=== PATIENT | female | born 1945 | race Caucasian/White ===

== ENCOUNTER → 2019-01-04 11:56 | Outpatient (CLI) | payer OTHER, SELFPAY ==
--- NOTE | 2019-01-04 | DI.RAD.S_ITS ---
PROCEDURE: XR FOOT LT 2V INDICATIONS: PAIN IN BOTH TECHNIQUE: 2 views of the foot were acquired. COMPARISON: None. FINDINGS: Bones: No fractures or dislocations. Degenerative changes of the left first metatarsophalangeal joint. Tiny plantar calcaneal spur. No suspicious bony lesions. Soft tissues: No tibiotalar joint effusion. Achilles tendon appears normal. IMPRESSION: Left foot without acute osseous abnormality. Mild left first metatarsophalangeal joint degenerative change. Tiny plantar calcaneal spurring. Dictated by: Juan C Frankel M.D. on 01/04/2019 at 12:08 Approved by: Juan C Frankel M.D. on 01/04/2019 at 12:10
--- NOTE | 2019-01-04 | DI.RAD.S_ITS ---
PROCEDURE: XR FOOT RT 2V INDICATIONS: PAIN IN BOTH TECHNIQUE: 2 views of the foot were acquired. COMPARISON: [facility], CR, XR FOOT LT 2V, 01/04/2019, 12:04. FINDINGS: Bones: No acute fractures or dislocations. Mild degenerative changes of the right first metatarsophalangeal joint. Prominent retrocalcaneal spurring. No suspicious bony lesions. Soft tissues: No tibiotalar joint effusion. Achilles tendon appears normal. IMPRESSION: Right foot without acute osseous abnormalities. Prominent retrocalcaneal spurring. Mild right first metatarsophalangeal joint osteoarthrosis. If there are persistent symptoms or clinical suspicion for pathology, then repeat radiographs or advanced imaging (CT, MRI or bone scan) should be considered for further evaluation. Dictated by: Juan C Frankel M.D. on 01/04/2019 at 12:11 Approved by: Juan C Frankel M.D. on 01/04/2019 at 12:13
== END ==
PROVIDERS: Family Provider Physician Assistant; PCP Physician Assistant; Visit Provider Student in an Organized Health Care Education/Training Program
DX: M79.672 Pain in left foot (principal); M79.671 Pain in right foot
CPT/HCPCS: 73620

== ENCOUNTER → 2021-09-15 11:47 | Outpatient (CLI) | payer MEDICARE, SELFPAY ==
--- NOTE | 2021-09-15 11:51 | DI.RAD.S_ITS ---
PROCEDURE: XR KNEE RT 3V INDICATIONS: right knee pain TECHNIQUE: 3 views of the knee were acquired. COMPARISON: [facility], , KNEE 3V LEFT, 12/02/2012, 14:17. FINDINGS: Bones: No fractures or dislocations. No suspicious bony lesions. Mild narrowing of the medial femorotibial joint and tricompartmental periarticular osteophyte formation. Soft tissues: Small joint effusion. No suspicious soft tissue calcifications. IMPRESSION: 1. Tricompartmental knee joint degeneration, most notably involving the medial femorotibial joint. 2. Small knee joint effusion. Dictated by: Pasquale Montero [facility] Interpreted: Claus Valverde MD on 09/15/2021 at 12:21 Transcribed by: DOM on 09/15/2021 at 12:22 Approved by: Claus Valverde M.D. on 09/15/2021 at 16:48
== END ==
PROVIDERS: Family Provider Physician Assistant; PCP Internal Medicine; Referring Provider Nurse Practitioner Family; Visit Provider Nurse Practitioner Family
DX: M25.561 Pain in right knee (principal); M25.461 Effusion, right knee; M17.11 Unilateral primary osteoarthritis, right knee
CPT/HCPCS: 73562

== ENCOUNTER → 2021-09-27 11:14 | Outpatient (CLI) | payer MEDICARE, SELFPAY ==
--- NOTE | 2021-09-27 11:17 | DI.MRI.S_ITS ---
PROCEDURE: MR KNEE RT WO CON INDICATIONS: Pain in right knee TECHNIQUE: Noncontrast sagittal PD fast spin echo and T2 fast spin echo with fat saturation, sagittal 3-D FLASH with fat saturation; coronal T1 spin echo and PD fast spin echo with fat saturation, and axial PD fast spin echo with fat saturation through the knee. COMPARISON: None. FINDINGS: Image quality: Excellent. Menisci: Peripheral displacement of medial meniscus is seen bowing medial collateral ligament. There is complex tear involving body of medial meniscus extending to both superior and inferior articulating surfaces. Lateral meniscus is intact. The meniscal root ligaments appear intact. Cruciate ligaments: The anterior and posterior cruciate ligaments appear intact. Medial structures: There is low-grade medial collateral ligament sprain. The posterior oblique ligament, semimembranosus tendon insertions, oblique popliteal ligament, and meniscocapsular junction appear intact. Visualized portions of the pes anserinus tendons appear normal. No abnormal bursal fluid. Lateral structures: The lateral collateral ligament, long and short heads of the biceps femoris tendon appear intact. The popliteus tendon appears normal; the popliteofibular ligament appears intact. The posterosuperior and anteroinferior popliteomeniscal fascicles appear intact. The arcuate and fabellofibular ligaments appear intact, on either side of the lateral inferior geniculate artery. Iliotibial band appears normal. Anterior structures: The quadriceps and patellar tendons appear intact. Patellar alignment is normal. No femoral trochlear dysplasia or ventral trochlear prominence. No edema in the infrapatellar fat pad. Bones and cartilage: No bone marrow contusions or fractures. Ujtx-vc-[id number] tricompartmental osteoarthritis and chondromalacia is seen more prominent in medial femoral tibial compartment and apex of patella cartilage. Joint space: There is small to moderate joint fluid. No Oropeza's cyst. Normal appearing synovial plicae are incidentally noted. IMPRESSION: 1. Complex tear involving body of medial meniscus extending to both superior and inferior articulating surfaces. No focal lateral meniscal tear. 2. Cruciate ligaments are intact. Low-grade MCL sprain. 3. Bsiu-bs-llijsgrj tricompartmental osteoarthritis and chondromalacia more prominent in medial femoral tibial compartment and apex of patella cartilage. Small to moderate joint effusion. Dictated by: Claus Valverde M.D. on 09/27/2021 at 16:44 Approved by: Claus Valverde M.D. on 09/27/2021 at 16:46
== END ==
PROVIDERS: Family Provider Physician Assistant; PCP Internal Medicine; Referring Provider Internal Medicine; Visit Provider Internal Medicine
DX: S83.231A Complex tear of medial meniscus, current injury, right knee, initial encounter (principal); S83.411A Sprain of medial collateral ligament of right knee, initial encounter; M17.11 Unilateral primary osteoarthritis, right knee; M94.261 Chondromalacia, right knee; M25.461 Effusion, right knee; M25.561 Pain in right knee
CPT/HCPCS: 73721

== ENCOUNTER → 2021-11-03 18:53 | Outpatient (CLI) | payer MEDICARE, SELFPAY ==
--- NOTE | 2021-11-03 | DI.MRI.S_ITS ---
PROCEDURE: MR LUMBAR SPINE WO CON INDICATIONS: RADICULOPATHY, LUMBAR REGION TECHNIQUE: Noncontrast sagittal T1 spin echo and T2 fast echo, sagittal STIR, and T2 fast spin echo through the lumbar spine. In cases with scoliosis, additional coronal T2 fast spin echo may be performed. COMPARISON: [facility], MR, MR LUMBAR SPINE WITH/WITHOUT CONTRAST, 03/14/2020, 10:34. [facility], CT, CT ABDOMEN PELVIS WITH CONTRAST, 03/05/2020, 11:14. FINDINGS: Image quality: Excellent. Alignment and Curvature: 5 lumbar type vertebral bodies are present by plain film. 2 mm of anterolisthesis of L4 on L5. 2 mm of anterolisthesis of L3 on L4. Bone Marrow: Marrow is of normal overall signal. No acute vertebral body compression fractures. Mild reactive signal throughout the endplates of the lumbar spine. Spinal Cord: Conus medullaris terminates at the L1-L2 disc space level. Visualized cord demonstrates normal signal and size. Paraspinous Soft Tissues: No paravertebral masses. T12-L1: Mild disc height loss and desiccation. Mild diffuse disc bulge. Mild facet and ligamentum flavum hypertrophy. Mild epidural lipomatosis. Mild canal stenosis. No foraminal stenosis. No significant change. L1-L2: Mild disc height loss and desiccation. Mild diffuse disc bulge. Mild facet and ligamentum flavum hypertrophy. Mild epidural lipomatosis. Mild canal stenosis. Mild bilateral foraminal stenosis. No significant change. L2-L3: Mild disc height loss and desiccation. Mild diffuse disc bulge. Mild facet and ligamentum flavum hypertrophy. Mild epidural lipomatosis. Mild canal stenosis. Mild bilateral foraminal stenosis. L3-L4: Moderate disc height loss and desiccation. Mild diffuse disc bulge. Mild facet and ligamentum flavum hypertrophy. Mild epidural lipomatosis. Mild canal stenosis. Mild bilateral foraminal stenosis. No significant change. L4-L5: Moderate disc height loss and desiccation. Mild diffuse disc bulge with superimposed left paracentral disc extrusion which extends superiorly within the left anterior epidural space, new since the prior examination. Mild facet and ligamentum flavum hypertrophy. Mild epidural lipomatosis. Increased, mild canal stenosis. No change in moderate right greater than left subarticular foraminal stenosis. L5-S1: Mild disc height loss and desiccation. Mild diffuse disc bulge. Mild bilateral facet hypertrophy. Right-sided perineural cyst. Mild canal stenosis. Mild bilateral foraminal stenosis. Tarlov cysts within the sacral canal, as before. IMPRESSION: 1. Multilevel degenerative disc and facet disease, as well as ligamentum flavum hypertrophy and epidural lipomatosis. 2. Mild multilevel canal stenoses. 3. Multilevel foraminal stenoses, worst at L4-L5 where there are moderate foraminal stenoses. Dictated by: Angella Bang M.D. on 11/04/2021 at 8:55 Approved by: Angella Bang M.D. on 11/04/2021 at 8:59
== END ==
PROVIDERS: Family Provider Physician Assistant; PCP Internal Medicine; Referring Provider Orthopaedic Surgery Foot and Ankle Surgery; Visit Provider Orthopaedic Surgery Foot and Ankle Surgery
DX: M51.16 Intervertebral disc disorders with radiculopathy, lumbar region (principal); M51.17 Intervertebral disc disorders with radiculopathy, lumbosacral region; M48.061 Spinal stenosis, lumbar region without neurogenic claudication; M48.07 Spinal stenosis, lumbosacral region
CPT/HCPCS: 72148

== ENCOUNTER → 2022-03-03 13:42 | Outpatient (CLI) | payer OTHER, SELFPAY | PROVIDERS: Family Provider Physician Assistant; PCP Internal Medicine; Referring Provider Orthopaedic Surgery Foot and Ankle Surgery; Visit Provider Orthopaedic Surgery Foot and Ankle Surgery | DX: Z01.818 Encounter for other preprocedural examination (principal) | CPT/HCPCS: 93005; 93010 ==

== ENCOUNTER → 2022-11-28 11:00 | Outpatient (CLI) | payer MEDICARE, SELFPAY ==
[2022-11-28 12:55] LABS: Hematocrit 39.6 % (36-46); Hemoglobin 13.5 g/dL (12.0-16.0); Mean Corpuscular Hemoglobin 31.3 PG (26-34); Mean Corpuscular Volume 92.1 fL (80-100); Platelet Count 236 X10^3/uL (150-400); Red Blood Cell Count 4.31 X10^6/uL (4.0-5.2); Red Cell Distribution Width 13.2 % (11.6-14.8); White Blood Cell Count 7.7 X10^3/uL (4.5-11.0)
[2022-11-28 13:33] LABS: Alanine Aminotransferase 24 IU/L (<35); Albumin 4.3 g/dL (3.5-5.0); Albumin Globulin Ratio 1.5 (1.0-2.8); Alkaline Phosphatase 46 U/L (38-126); Aspartate Aminotransferase 33 IU/L (14-36); BUN Creatinine Ratio 27.7 (6-22); Bilirubin Total 0.6 mg/dL (0.2-1.3); Blood Urea Nitrogen 18 mg/dL (7-17); Calcium 9.8 mg/dL (8.4-10.2); Carbon Dioxide 28 mmol/L (22-32); Chloride 103 mmol/L (98-107); Estimated Glomerular Filt Rate > 60 mL/min (>60); Globulin 2.9 g/dL (1.7-4.1); Glucose 95 mg/dL (80-110); HEMOLYSIS 15 (0-50); Magnesium 2.1 mg/dL (1.6-2.3); Potassium 4.2 mmol/L (3.4-5.1); Sodium 137 mmol/L (137-145); Total Protein 7.2 g/dL (6.3-8.2)
[2022-11-28 14:08] LABS: Free T3, Triiodothyronine Free 4.84 pg/mL (2.77-5.27); Free T4, Direct Thyroxine 1.44 ng/dL (0.78-2.19)
== END ==
PROVIDERS: Family Provider Physician Assistant; PCP Nurse Practitioner; Referring Provider Nurse Practitioner; Visit Provider Nurse Practitioner
DX: R41.9 Unspecified symptoms and signs involving cognitive functions and awareness (principal); T50.905A Adverse effect of unspecified drugs, medicaments and biological substances, initial encounter; F41.9 Anxiety disorder, unspecified; R42 Dizziness and giddiness
CPT/HCPCS: 36415; 80053; 83735; 84439; 84443; 84481; 85027

== ENCOUNTER → 2022-12-08 11:08 | Outpatient (CLI) | payer MEDICARE, SELFPAY ==
--- NOTE | 2022-12-08 11:10 | DI.US.S_ITS ---
PROCEDURE: US CAROTID DOPPLER BI INDICATIONS: dizziness TECHNIQUE: Color and pulse Doppler interrogation was performed of both carotid systems, with image documentation and velocity measurements. COMPARISON: None. FINDINGS: Stenosis calculations are based on SRU (Society of Radiologists in Ultrasound) criteria. The flow velocities and the arterial waveforms are normal within both carotid arterial systems. Atherosclerotic plaque is seen on both sides, left worse than right. The estimated degree of internal carotid artery stenosis is less than 50%. Antegrade flow is confirmed within both vertebral arteries. IMPRESSION: No hemodynamically significant stenosis is seen. Atherosclerotic plaque is noted bilaterally. Dictated by: Dmitriy Marshall M.D. on 12/08/2022 at 13:01 Approved by: Dmitriy Marshall M.D. on 12/08/2022 at 13:01
== END ==
PROVIDERS: Family Provider Physician Assistant; PCP Nurse Practitioner; Referring Provider Family Medicine; Visit Provider Family Medicine
DX: I65.23 Occlusion and stenosis of bilateral carotid arteries (principal); R42 Dizziness and giddiness
CPT/HCPCS: 93880

== ENCOUNTER → 2022-12-28 17:41 | Outpatient (CLI) | payer MEDICARE, SELFPAY ==
[2022-12-28 18:06] LABS: Add Manual Diff / Slide Review NO; Basophils Absolute Auto 100 /uL (0-100); Basophils Percent Auto 0.9 % (0-2); Eosinophils Absolute Auto 300 /uL (0-450); Eosinophils Percent Auto 3.9 % (2-4); Hematocrit 38.4 % (36-46); Hemoglobin 12.9 g/dL (12.0-16.0); Lymphocytes Absolute Auto 1700 /uL (1100-4500); Lymphocytes Percent Auto 23.1 % (25-40); Mean Corpuscular HGB Conc 33.6 % (30-36); Mean Corpuscular Hemoglobin 30.6 PG (26-34); Mean Corpuscular Volume 91.1 fL (80-100); Monocytes Absolute Auto 700 /uL (0-900); Monocytes Percent Auto 9.6 % (3-14); Neutrophils Absolute Auto 4600 /uL (1500-7000); Neutrophils Percent Auto 62.5 % (50-75); Platelet Count 225 X10^3/uL (150-400); Red Blood Cell Count 4.21 X10^6/uL (4.0-5.2); Red Cell Distribution Width 13.1 % (11.6-14.8); White Blood Cell Count 7.3 X10^3/uL (4.5-11.0)
[2022-12-28 18:45] LABS: Cholesterol 212 mg/dL (140-199); HDL Cholesterol 42 mg/dL (40-60); LDL Cholesterol Calculated 142 mg/dL (<100); Triglycerides 142 mg/dL (35-150)
[2022-12-28 18:46] LABS: BUN Creatinine Ratio 36.1 (6-22); Blood Urea Nitrogen 22 mg/dL (7-17); C-Reactive Protein Quant 0.7 mg/dL (<1.0); Carbon Dioxide 27 mmol/L (22-32); Chloride 106 mmol/L (98-107); Estimated Glomerular Filt Rate > 60 mL/min (>60); Glucose 98 mg/dL (80-110); HEMOLYSIS < 15 (0-50); Potassium 4.3 mmol/L (3.4-5.1); Sodium 139 mmol/L (137-145)
[2022-12-28 19:47] LABS: Erythrocyte Sedimentation Rate 21 MM/HR (0-20)
== END ==
PROVIDERS: Internal Medicine; Family Provider Physician Assistant; PCP Nurse Practitioner; Referring Provider Family Medicine; Visit Provider Family Medicine
DX: E78.5 Hyperlipidemia, unspecified (principal); Z79.52 Long term (current) use of systemic steroids; M35.3 Polymyalgia rheumatica
CPT/HCPCS: 80048; 80061; 85025; 85651; 86140

== ENCOUNTER → 2023-01-19 15:45 | Outpatient (CLI) | payer MEDICARE, SELFPAY ==
--- NOTE | 2023-01-19 15:46 | DI.CT.S_ITS ---
PROCEDURE: CT ANGIO ABDOMEN PELVIS INDICATIONS: ischemic colitis TECHNIQUE: After the administration of intravenous contrast, 2.5 mm sections acquired from the diaphragm to the iliac crests. 10 mm maximum intensity projection (MIP) coronal and sagittal reformats were then performed. For radiation dose reduction, the following was used: automated exposure control. COMPARISON: [facility], CT, CT ABDOMEN PELVIS WITH CONTRAST, 12/17/2022, 15:54. FINDINGS: Image quality: Excellent. Extravascular tissues: Lung bases are clear. Heart size is normal. Liver is normal in size and enhancement. Gallbladder surgically absent . Biliary system is non dilated. Pancreas enhances normally. Spleen is normal in size and enhancement. No adrenal nodules. Kidneys are normal in size and enhancement, without hydronephrosis. Significantly improved wall thickening and edema of the descending colon. There is mild inflammatory change in the adjacent fat. No free fluid or air. No retroperitoneal or mesenteric adenopathy. No ventral hernias. No suspicious bony abnormalities. No vertebral body compression fractures. 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 Remote hysterectomy. Pelvic floor relaxation with prominent enterocele. Abdominal aorta: No stenosis or dissection or aneurysm Mesenteric arteries: Patent Renal arteries: Patent IMPRESSION: 1. Unremarkable CT angiogram. No evidence of chronic mesenteric ischemia. No acute emboli identified. 2. Significant interval improvement in the appearance of the descending colon with improved wall thickening and edema. 3. Remote hysterectomy with pelvic floor relaxation and prominent enterocele. 4. Incidental note made of very large Tarlov cyst remodeling the sacrum. Dictated by: Xavi Landeros M.D. on 01/19/2023 at 17:02 Approved by: Xavi Landeros M.D. on 01/19/2023 at 17:15
== END ==
PROVIDERS: Family Provider Physician Assistant; PCP Nurse Practitioner; Referring Provider Family Medicine; Visit Provider Family Medicine
DX: K92.2 Gastrointestinal hemorrhage, unspecified (principal); K52.9 Noninfective gastroenteritis and colitis, unspecified; N81.5 Vaginal enterocele; G96.191 Perineural cyst; Z90.710 Acquired absence of both cervix and uterus
CPT/HCPCS: 74174; Q9967

== ENCOUNTER → 2023-03-14 13:18 | Outpatient (CLI) | payer MEDICARE, SELFPAY ==
--- NOTE | 2023-03-14 13:19 | DI.MRI.S_ITS ---
PROCEDURE: MR KNEE LT WO CON INDICATIONS: Left knee pain, r/o miniscus tear TECHNIQUE: Noncontrast sagittal PD fast spin echo and T2 fast spin echo with fat saturation, sagittal 3-D FLASH with fat saturation; coronal T1 spin echo and PD fast spin echo with fat saturation, and axial PD fast spin echo with fat saturation through the knee. COMPARISON: [facility], MR, MR KNEE RT WO CON, 09/27/2021, 11:34. FINDINGS: Image quality: Excellent. Menisci: There is peripheral displacement of medial meniscus bowing medial collateral ligament. There is suggestion of complex tear involving body and posterior horn of medial meniscus extending to both superior and inferior articulating surfaces. The lateral meniscus is intact. The meniscal root ligaments appear intact. Cruciate ligaments: The anterior and posterior cruciate ligaments appear intact. Medial structures: The medial collateral ligament appears thickened with surrounding edema. Visualized portions of the pes anserinus tendons appear normal. No abnormal bursal fluid. Lateral structures: The lateral collateral ligament, long and short heads of the biceps femoris tendon appear intact. The popliteus tendon appears normal; the popliteofibular ligament appears intact. Iliotibial band appears normal. Anterior structures: The quadriceps and patellar tendons appear intact. Patellar alignment is normal. No femoral trochlear dysplasia or ventral trochlear prominence. No edema in the infrapatellar fat pad. Bones and cartilage: Jkzm-gc-qfbpiugv tricompartmental osteoarthritis and chondromalacia is again seen most notably in medial femoral tibial compartment unchanged from previous study. No acute fracture or dislocation. Joint space: There is small knee joint fluid. No Oropeza's cyst. Normal appearing synovial plicae are incidentally noted. IMPRESSION: 1. Complex tear involving body and posterior horn of medial meniscus extending to both superior and inferior articulating surfaces unchanged or slightly progressed compared to previous study. The lateral meniscus is intact. 2. Low-grade MCL sprain. The cruciate ligaments are intact. 3. Zwwe-uo-ntrnqweb tricompartmental osteoarthritis and chondromalacia of most notably in medial femoral tibial compartment not significantly changed from prior study. No fracture or dislocation. Small joint effusion. Dictated by: Claus Valverde M.D. on 03/14/2023 at 16:03 Approved by: Claus Valverde M.D. on 03/14/2023 at 16:07
== END ==
PROVIDERS: Family Provider Physician Assistant; PCP Nurse Practitioner; Referring Provider Nurse Practitioner; Visit Provider Nurse Practitioner
DX: S83.232A Complex tear of medial meniscus, current injury, left knee, initial encounter (principal); S83.412A Sprain of medial collateral ligament of left knee, initial encounter; M17.12 Unilateral primary osteoarthritis, left knee; M94.262 Chondromalacia, left knee; M25.562 Pain in left knee; M25.462 Effusion, left knee
CPT/HCPCS: 73721

== ENCOUNTER → 2023-05-16 13:04 | Outpatient (CLI) | payer MEDICARE, SELFPAY ==
[2023-05-16 14:20] LABS: Erythrocyte Sedimentation Rate 33 MM/HR (0-20)
[2023-05-16 15:27] LABS: C-Reactive Protein Quant 1.4 mg/dL (<1.0)
== END ==
PROVIDERS: Family Provider Physician Assistant; PCP Nurse Practitioner; Referring Provider Nurse Practitioner; Visit Provider Nurse Practitioner
DX: M35.3 Polymyalgia rheumatica (principal)
CPT/HCPCS: 36415; 85651; 86140

== ENCOUNTER → 2023-05-18 09:58 | Outpatient (CLI) | payer MEDICARE, SELFPAY ==
[2023-05-18 10:43] LABS: Add Manual Diff / Slide Review NO; Basophils Absolute Auto 100 /uL (0-100); Basophils Percent Auto 0.8 % (0-2); Eosinophils Absolute Auto 200 /uL (0-450); Eosinophils Percent Auto 2.7 % (2-4); Hematocrit 39.8 % (36-46); Hemoglobin 13.1 g/dL (12.0-16.0); Lymphocytes Absolute Auto 1700 /uL (1100-4500); Lymphocytes Percent Auto 25.8 % (25-40); Mean Corpuscular Hemoglobin 30.4 PG (26-34); Mean Corpuscular Volume 92.2 fL (80-100); Monocytes Absolute Auto 600 /uL (0-900); Neutrophils Absolute Auto 4200 /uL (1500-7000); Neutrophils Percent Auto 61.7 % (50-75); Platelet Count 234 X10^3/uL (150-400); Red Blood Cell Count 4.32 X10^6/uL (4.0-5.2); Red Cell Distribution Width 13.9 % (11.6-14.8); White Blood Cell Count 6.7 X10^3/uL (4.5-11.0)
[2023-05-18 11:00] LABS: Alanine Aminotransferase 18 IU/L (<35); Albumin 4.2 g/dL (3.5-5.0); Albumin Globulin Ratio 1.4 (1.0-2.8); Alkaline Phosphatase 46 U/L (38-126); Aspartate Aminotransferase 27 IU/L (14-36); BUN Creatinine Ratio 36.1 (6-22); Bilirubin Total 0.7 mg/dL (0.2-1.3); Blood Urea Nitrogen 22 mg/dL (7-17); Calcium 9.6 mg/dL (8.4-10.2); Carbon Dioxide 23 mmol/L (22-32); Chloride 107 mmol/L (98-107); Cholesterol 200 mg/dL (140-199); Estimated Glomerular Filt Rate > 60 mL/min (>60); Globulin 2.9 g/dL (1.7-4.1); Glucose 93 mg/dL (80-110); HDL Cholesterol 45 mg/dL (40-60); HEMOLYSIS < 15 (0-50); LDL Cholesterol Calculated 132 mg/dL (<100); Potassium 4.1 mmol/L (3.4-5.1); Sodium 139 mmol/L (137-145); Total Protein 7.1 g/dL (6.3-8.2); Triglycerides 116 mg/dL (35-150)
[2023-05-18 11:17] LABS: Free T3, Triiodothyronine Free 3.44 pg/mL (2.77-5.27)
[2023-05-18 11:30] LABS: Thyroid Stimulating Hormone 2.05 uIU/mL (0.47-4.68)
== END ==
PROVIDERS: Family Provider Physician Assistant; PCP Nurse Practitioner; Referring Provider Nurse Practitioner; Visit Provider Nurse Practitioner
DX: E78.5 Hyperlipidemia, unspecified (principal); R53.83 Other fatigue
CPT/HCPCS: 36415; 80053; 80061; 84439; 84443; 84481; 85025

== ENCOUNTER → 2023-06-30 08:22 | Outpatient (CLI) | payer OTHER, SELFPAY ==
--- NOTE | 2023-06-30 | DI.MG.S_ITS ---
BILATERAL DIGITAL SCREENING MAMMOGRAM 3D/2D WITH CAD: 06/30/2023 CLINICAL: Routine screening. Comparison is made to exams dated: 05/25/2021 mammogram, 02/07/2020 mammogram, and 12/12/2018 mammogram - [facility]. There are scattered areas of fibroglandular density in both breasts (category b / 25%-50% glandular tissue). Current study was also evaluated with a Computer Aided Detection (CAD) system. There is a focal asymmetry in the left breast central to the nipple middle depth. No other significant masses, calcifications, or other findings are seen in either breast. IMPRESSION: INCOMPLETE: NEEDS ADDITIONAL IMAGING EVALUATION The focal asymmetry in the left breast is indeterminate. Additional views with possible ultrasound are recommended. Based on the Tyrer Cuzick model (a risk assessment model) the patient's lifetime risk is 1.8% and her 10 year risk is 0.0%. According to the ACR, ACS, and NCCN guidelines, an annual breast MRI exam along with mammogram is recommended if the patient's lifetime risk is 20% or greater. This exam was interpreted at Station ID: [id number]. NOTE: For mammograms, a report in lay terms will be sent to the patient. Approximately 15% of breast malignancies will not be visualized mammographically. In the management of a palpable breast mass, a negative mammogram must not discourage biopsy of a clinically suspicious lesion. Electronically Signed By: Pauline hays/sahil:07/02/2023 15:33:58 letter sent: Additional Imaging Needed ACR BI-RADS Category 0: Incomplete 3340F
--- NOTE | 2023-06-30 08:27 | DI.RAD.S_ITS ---
P the ROCEDURE: XR LUMBAR SPINE 2-3V INDICATIONS: s/p fall TECHNIQUE: 3 views of the lumbar spine were acquired. COMPARISON: None. FINDINGS: Bones: 5 key-qqb-bsvosxi vertebrae are present. Straightening of the normal lumbar lordosis. Grade 1 anterolisthesis of L4 on L5 of approximately 3 mm. Mild to moderate multilevel degenerative changes with osteophytosis, disc height loss and facet arthropathy, worse at L4-L5. Slight dextroconvex curvature of the lumbar spine. Moderate to severe osseous neural foraminal narrowing at L4-5 and L5-S1. No vertebral body compression fractures. No suspicious bony lesions. Soft tissues: Overlying bowel gas pattern is normal. No suspicious soft tissue calcifications. Calcification of the abdominal aorta. Cholecystectomy clips. Above average colonic stool burden. IMPRESSION: 1. No acute bony abnormality. 2. Multilevel degenerative changes, worse at L4-5 and L5-S1. Dictated by: Margie Chavez M.D. on 06/30/2023 at 11:46 Approved by: Margie Chavez M.D. on 06/30/2023 at 12:05
--- NOTE | 2023-06-30 08:27 | DI.RAD.S_ITS ---
PROCEDURE: XR SACRUM COCCYX MIN 2V INDICATIONS: s/p fall TECHNIQUE: 3 views of the sacrum and coccyx acquired. COMPARISON: None. FINDINGS: Overlying bowel gas limits evaluation of the sacrum on AP view. Bones: No fractures or dislocations. Mild degenerative changes of the bilateral SI joints and pubic symphysis. No suspicious bony lesions. Soft tissues: Visualized bowel gas pattern is normal. No suspicious soft tissue densities. IMPRESSION: 1. No acute osseous abnormality. 2. Mild degenerative changes of the bilateral SI joints and pubic symphysis. Dictated by: Margie Chavez M.D. on 06/30/2023 at 11:45 Approved by: Margie Chavez M.D. on 06/30/2023 at 11:46
== END ==
PROVIDERS: Family Provider Physician Assistant; PCP Nurse Practitioner; Referring Provider Nurse Practitioner; Visit Provider Nurse Practitioner
DX: Z12.31 Encounter for screening mammogram for malignant neoplasm of breast (principal); R92.323 Mammographic fibroglandular density, bilateral breasts; M47.816 Spondylosis without myelopathy or radiculopathy, lumbar region; M47.817 Spondylosis without myelopathy or radiculopathy, lumbosacral region; M47.818 Spondylosis without myelopathy or radiculopathy, sacral and sacrococcygeal region; M54.50 Low back pain, unspecified; M53.3 Sacrococcygeal disorders, not elsewhere classified
CPT/HCPCS: 72100; 72220; 77063; 77067

== ENCOUNTER → 2023-07-23 08:44 | Outpatient (CLI) | payer MEDICARE, SELFPAY ==
--- NOTE | 2023-07-23 | DI.MG.S_ITS ---
UNILATERAL LEFT DIGITAL DIAGNOSTIC MAMMOGRAM 3D/2D WITH ADDITIONAL VIEWS: 07/23/2023 CLINICAL: Additional evaluation requested from prior study. Comparison is made to exams dated: 06/30/2023 mammogram - [facility], 05/25/2021 mammogram, and 02/07/2020 mammogram - [facility]. There are scattered areas of fibroglandular density in the left breast (category b / 25%-50% glandular tissue). There is a focal asymmetry in the left breast central to the nipple middle depth. This is less prominent. No other significant masses or calcifications are seen in the breast. IMPRESSION: INCOMPLETE: NEEDS ADDITIONAL IMAGING EVALUATION The focal asymmetry in the left breast resembles fibroglandular tissue and is indeterminate. An ultrasound is recommended. Based on the Tyrer Cuzick model (a risk assessment model) the patient's lifetime risk is 1.8% and her 10 year risk is 0.0%. According to the ACR, ACS, and NCCN guidelines, an annual breast MRI exam along with mammogram is recommended if the patient's lifetime risk is 20% or greater. This exam was interpreted at Station ID: [id number]. NOTE: For mammograms, a report in lay terms will be sent to the patient. Approximately 15% of breast malignancies will not be visualized mammographically. In the management of a palpable breast mass, a negative mammogram must not discourage biopsy of a clinically suspicious lesion. Electronically Signed By: David Hauser M.D. ar/:07/23/2023 20:46:32 ACR BI-RADS Category 0: Incomplete 3340F
--- NOTE | 2023-07-23 08:46 | DI.US.S_ITS ---
LIMITED ULTRASOUND OF LEFT BREAST: 07/23/2023 CLINICAL: Patient returns today to evaluate a focal asymmetry in the left breast. Comparison is made to exams dated: 07/23/2023 mammogram, 06/30/2023 mammogram - [facility], 05/25/2021 mammogram, 02/07/2020 mammogram, and 12/12/2018 mammogram - [facility]. Real-time ultrasound of the left breast 12 o'clock, and retroareolar regions was performed. Cosme scale images of the real-time examination were reviewed. No significant abnormalities were seen sonographically in the left breast. IMPRESSION: NEGATIVE There is no sonographic evidence of malignancy. There is no abnormality seen in the left breast to correspond with the mammography finding which is consistent with normal fibroglandular tissue. Return to annual mammogram screening schedule is recommended. This exam was interpreted at Station ID: [id number]. Electronically Signed By: David Hauser M.D. ar/:07/23/2023 20:49:46 letter sent: Normal Exam Ultrasound BI-RADS: 1 Negative
== END ==
PROVIDERS: Family Provider Physician Assistant; PCP Nurse Practitioner; Referring Provider Nurse Practitioner; Visit Provider Nurse Practitioner
DX: R92.8 Other abnormal and inconclusive findings on diagnostic imaging of breast (principal); R92.322 Mammographic fibroglandular density, left breast
CPT/HCPCS: 76642; 77065; G0279

== ENCOUNTER → 2023-09-01 10:13 | Outpatient (CLI) | payer MEDICARE, SELFPAY ==
[2023-09-01 12:28] LABS: Alanine Aminotransferase 22 IU/L (<35); Albumin 3.9 g/dL (3.5-5.0); Albumin Globulin Ratio 1.7 (1.0-2.8); Alkaline Phosphatase 42 U/L (38-126); Aspartate Aminotransferase 27 IU/L (14-36); BUN Creatinine Ratio 36.5 (6-22); Bilirubin Total 0.7 mg/dL (0.2-1.3); Blood Urea Nitrogen 23 mg/dL (7-17); Calcium 9.1 mg/dL (8.4-10.2); Carbon Dioxide 30 mmol/L (22-32); Chloride 108 mmol/L (98-107); Cholesterol 167 mg/dL (140-199); Estimated Glomerular Filt Rate > 60 mL/min (>60); Globulin 2.3 g/dL (1.7-4.1); Glucose 87 mg/dL (80-110); HDL Cholesterol 51 mg/dL (40-60); HEMOLYSIS < 15 (0-50); LDL Cholesterol Calculated 94 mg/dL (<100); Potassium 4.6 mmol/L (3.4-5.1); Sodium 142 mmol/L (137-145); Total Protein 6.2 g/dL (6.3-8.2); Triglycerides 111 mg/dL (35-150)
== END ==
PROVIDERS: Family Provider Physician Assistant; PCP Nurse Practitioner; Referring Provider Nurse Practitioner; Visit Provider Nurse Practitioner
DX: E78.5 Hyperlipidemia, unspecified (principal); Z79.899 Other long term (current) drug therapy
CPT/HCPCS: 36415; 80053; 80061

== ENCOUNTER → 2024-01-16 14:48 | Outpatient (CLI) | payer MEDICARE, SELFPAY ==
[2024-01-16 16:25] LABS: Add Manual Diff / Slide Review NO; Basophils Absolute Auto 0 /uL (0-100); Basophils Percent Auto 0.2 % (0-2); Eosinophils Absolute Auto 0 /uL (0-450); Hematocrit 42.5 % (36-46); Lymphocytes Absolute Auto 1000 /uL (1100-4500); Lymphocytes Percent Auto 10.3 % (25-40); Mean Corpuscular HGB Conc 32.9 % (30-36); Mean Corpuscular Hemoglobin 30.4 PG (26-34); Mean Corpuscular Volume 92.3 fL (80-100); Monocytes Absolute Auto 400 /uL (0-900); Monocytes Percent Auto 4.4 % (3-14); Neutrophils Absolute Auto 8100 /uL (1500-7000); Neutrophils Percent Auto 85.1 % (50-75); Platelet Count 248 X10^3/uL (150-400); Red Cell Distribution Width 13.8 % (11.6-14.8); White Blood Cell Count 9.5 X10^3/uL (4.5-11.0)
[2024-01-16 16:38] LABS: Alanine Aminotransferase 32 IU/L (<35); Albumin 4.4 g/dL (3.5-5.0); Albumin Globulin Ratio 1.8 (1.0-2.8); Alkaline Phosphatase 41 U/L (38-126); Aspartate Aminotransferase 33 IU/L (14-36); BUN Creatinine Ratio 32.9 (6-22); Bilirubin Total 0.7 mg/dL (0.2-1.3); Blood Urea Nitrogen 23 mg/dL (7-17); C-Reactive Protein Quant < 0.5 mg/dL (<1.0); Carbon Dioxide 25 mmol/L (22-32); Chloride 106 mmol/L (98-107); Estimated Glomerular Filt Rate > 60 mL/min (>60); Globulin 2.4 g/dL (1.7-4.1); Glucose 154 mg/dL (80-110); HEMOLYSIS < 15 (0-50); Potassium 4.3 mmol/L (3.4-5.1); Sodium 138 mmol/L (137-145); Total Protein 6.8 g/dL (6.3-8.2)
[2024-01-16 16:54] LABS: Free T3, Triiodothyronine Free 4.05 pg/mL (2.77-5.27); Free T4, Direct Thyroxine 1.34 ng/dL (0.78-2.19)
[2024-01-16 17:11] LABS: Thyroid Stimulating Hormone < 0.015 uIU/mL (0.47-4.68)
[2024-01-16 17:37] LABS: Erythrocyte Sedimentation Rate 8 MM/HR (0-20)
== END ==
PROVIDERS: Family Provider Physician Assistant; PCP Nurse Practitioner Family; Referring Provider Nurse Practitioner Family; Visit Provider Nurse Practitioner Family
DX: M35.3 Polymyalgia rheumatica (principal); I10 Essential (primary) hypertension; G47.00 Insomnia, unspecified; Z79.52 Long term (current) use of systemic steroids; M81.0 Age-related osteoporosis without current pathological fracture; E78.5 Hyperlipidemia, unspecified; Z79.899 Other long term (current) drug therapy
CPT/HCPCS: 36415; 80053; 84439; 84443; 84481; 85025; 85651; 86140

== ENCOUNTER → 2024-02-16 09:03 | Outpatient (CLI) | payer MEDICARE, SELFPAY ==
[2024-02-16 09:59] LABS: Add Manual Diff / Slide Review NO; Basophils Absolute Auto 100 /uL (0-100); Basophils Percent Auto 0.9 % (0-2); Eosinophils Absolute Auto 100 /uL (0-450); Eosinophils Percent Auto 1.7 % (2-4); Hematocrit 42.8 % (36-46); Hemoglobin 13.9 g/dL (12.0-16.0); Lymphocytes Absolute Auto 1900 /uL (1100-4500); Lymphocytes Percent Auto 25.1 % (25-40); Mean Corpuscular HGB Conc 32.5 % (30-36); Mean Corpuscular Hemoglobin 30.3 PG (26-34); Mean Corpuscular Volume 93.3 fL (80-100); Monocytes Absolute Auto 800 /uL (0-900); Monocytes Percent Auto 10.3 % (3-14); Neutrophils Absolute Auto 4700 /uL (1500-7000); Platelet Count 218 X10^3/uL (150-400); Red Blood Cell Count 4.59 X10^6/uL (4.0-5.2); Red Cell Distribution Width 13.9 % (11.6-14.8); White Blood Cell Count 7.6 X10^3/uL (4.5-11.0)
[2024-02-16 10:11] LABS: HEMOLYSIS < 15 (0-50); Hemoglobin A1C% w Est Avg Glu 6.3 % (4.0-6.0); Iron 146 ug/dL (37-170)
[2024-02-16 10:13] LABS: Cholesterol 171 mg/dL (140-199); HDL Cholesterol 55 mg/dL (40-60); LDL Cholesterol Calculated 99 mg/dL (<100); Triglycerides 83 mg/dL (35-150)
[2024-02-16 10:22] LABS: Percent Iron Saturation 39 % (15-50); Total Iron Binding Capacity 370 ug/dL (265-497); Transferrin 294 mg/dL (206-381)
[2024-02-16 10:42] LABS: TSH w/ Reflex to FT4 1.48 uIU/mL (0.47-4.68)
== END ==
PROVIDERS: Family Provider Physician Assistant; PCP Nurse Practitioner Family; Referring Provider Physician Assistant; Visit Provider Physician Assistant
DX: G47.00 Insomnia, unspecified (principal); Z79.899 Other long term (current) drug therapy; E78.5 Hyperlipidemia, unspecified; Z79.52 Long term (current) use of systemic steroids; M35.3 Polymyalgia rheumatica; M81.0 Age-related osteoporosis without current pathological fracture; I10 Essential (primary) hypertension; E78.00 Pure hypercholesterolemia, unspecified; R79.89 Other specified abnormal findings of blood chemistry; R73.09 Other abnormal glucose; R53.83 Other fatigue; R10.32 Left lower quadrant pain
CPT/HCPCS: 36415; 80061; 83036; 83540; 83550; 84443; 85025

== ENCOUNTER → 2024-10-27 12:58 | Outpatient (CLI) | payer MEDICARE, SELFPAY ==
--- NOTE | 2024-10-27 13:01 | DI.MG.S_ITS ---
MM screening mammo BI: 10/27/2024. BI-RADS: 2 CLINICAL: 78-year old female for bilateral screening mammogram. Tyrer-Cuzick lifetime risk of 1.1%. No personal or first-degree family history of breast cancer. PRIOR EXAMS 07/23/2023, 06/30/2023, 05/25/2021, 12/12/2018. MAMMOGRAPHY TECHNIQUE: 2D and 3D (tomosynthesis) digital mammographic views obtained, with additional images as needed for full coverage. Current study was also evaluated with a Computer Aided Detection (CAD) system. DENSITY B. There are scattered areas of fibroglandular density. MAMMOGRAPHY FINDINGS Bilateral: Benign-appearing calcifications noted. There are no suspicious masses, calcifications, or other findings in the breast. No significant change from comparison. IMPRESSION: * No evidence of malignancy with benign findings. RECOMMENDATIONS Bilateral * Annual screening mammography. OVERALL ASSESSMENT CATEGORY BI-RADS-2: Benign. The [employer] recommends annual screening mammography beginning at age 40 for women with average risk of breast cancer. ELECTRONICALLY SIGNED: Juana Ribeiro M.D. on 10/28/2024 at 09:11:29 AM PT Interpreting Station ID: [id number]
--- NOTE | 2024-10-27 13:33 | EKG_ITS ---
[id number] [address] Test Date: 2024-10-27 Pat Name: Anastasiia Coker Department: DEFAULT Room: Gender: Female Hearing Health Technician: JILL : 1945 Requested By: Order Number: [id number] Reading MD: Jus Rm MD Measurements Intervals Vader Rate: 76 P: 47 DC: 148 QRS: 61 QRSD: 72 T: 58 QT: 358 QTc: 402 Interpretive Statements Normal sinus rhythm with sinus arrhythmia Electronically Signed On 10-27-2024 14:20:33 PDT by Jus Rm MD
== END ==
PROVIDERS: Family Provider Physician Assistant; PCP Nurse Practitioner Family; Referring Provider Nurse Practitioner Family; Visit Provider Nurse Practitioner Family
DX: Z12.31 Encounter for screening mammogram for malignant neoplasm of breast (principal); Z01.818 Encounter for other preprocedural examination
CPT/HCPCS: 77063; 77067; 93005; 93010

== ENCOUNTER 2025-02-09 08:17 | Day surgery (SDC) | payer MEDICARE, SELFPAY ==
[2025-02-02 09:23] VITALS: BMI 31.2
[2025-02-09] VITALS (21 sets, daily range): BP systolic 136–179; BP diastolic 54–81; PULSE 67–94; RESP 10–20; TEMP 35.9–36.2; O2SAT 91–97; BMI 31.1
--- NOTE | 2025-02-09 07:53 | DI.RAD.S_ITS ---
PROCEDURE: XR KNEE LT 1TO2V INDICATIONS: TKA TECHNIQUE: 2 view(s) of the knee acquired. COMPARISON: [facility], CR, XR KNEE RT 3V, 09/15/2021, 11:40. FINDINGS: Bones: Patient is status post knee joint arthroplasty. Hardware components are in expected positions. Visualized bony structures are intact. Soft tissues: Overlying postoperative changes are noted. IMPRESSION: Expected post-operative appearance of a knee arthroplasty. Dictated by: Randy Shelby M.D. on 02/09/2025 at 13:49 Approved by: Randy Shelby M.D. on 02/09/2025 at 13:49
[2025-02-09] MEDS: LACTATED RINGERS 1,000 ML 42 ML IV ×2 (08:52→12:40)
[2025-02-09] MEDS: ACETAMINOPHEN 325 MG TABLET 975 MG PO (08:52)
--- NOTE | 2025-02-09 10:42 | PM.PREOP ---
Pre-operative Note Interval Note History & Physical reviewed/Exam performed by Physician: Yes Changes to H&P: No
[2025-02-09] MEDS: TRANEXAMIC ACID 1,000 MG VIAL 1000 MG INJ ×2 (11:05→12:33)
--- NOTE | 2025-02-09 11:33 | SUR.OPER ---
Supine on padded OR bed, head on pillow, arms secured on padded arm boards at <90 degrees abduction, legs uncrossed, safety belt at waist, hip buckle stapler lateral post to left thigh, tape over blanket over lower right leg.
[2025-02-09] MEDS: KETOROLAC 30 MG/ML VIAL 15 MG INJ (11:43)
--- NOTE | 2025-02-09 12:57 | P.OP_ITS ---
Operative Date/Time/Diagnoses Date of procedure: 02/09/25 Time of procedure: 10:30 Pre-op diagnosis: Left knee osteoarthritis Post-op diagnosis: same Procedure & Clinicians Procedure: Left Total knee arthroplasty Same procedure(s) as scheduled: Yes Surgeon: Roderick Hart Assisted?: Yes Tenant Coordinator: Nora Ly Anesthesia Type: Spinal, Sedation, Peripheral nerve block and Local Operative Notes Findings: Severe arthritis Closure Type: primary Specimen(s): none sent Applied: implant(s) Estimated Blood Loss (mL): 100 Tourniquet time (min): 52 Procedure in detail: Left Gap-Balanced Lidia Persona Medial-Congruent Primary Total Knee Arthroplasty Implants: * Size 6 narrow nickel free Cruciate Retaining Femoral Component * Size C Tibial Component * Size 12 Medial Congruent Polyethylene Insert * Unresurfaced Patella Procedure Summary: This 79-year-old female patient has been on chronic steroids and in the past has been prescribed alendronate. Her bone quality was quite poor as would be anticipated based on that medical history so cemented fixation was utilized. I cut her tibia in slight varus to balanced our extension gap and the flexion gap balanced with 4? of external rotation. Procedure in Detail: This patient was seen preoperatively and evaluated for knee pain which was refractory to numerous nonoperative treatment modalities. Their pain correlated with radiographic changes demonstrating significant degeneration in the knee joint. The risks and benefits of continued nonoperative management versus operative management were discussed at length and all of the patient?s questions were answered. Additional educational materials providing further details beyond our discussion in clinic were provided via a publicly available patient education video which included the incidence of medical complications associated with total knee arthroplasty, reasons for revision following total knee arthroplasty, and patient satisfaction rates following total knee arthroplasty. With this understanding of the risks inherent to the procedure, the patient elected to move forward with operative management. Following preoperative optimization, the patient was scheduled for surgery. The patient was met in the preoperative holding area the day of the procedure and all questions were answered. The patient?s nares were swabbed in order to decolonize them from MRSA. Informed consent was signed and the left limb was marked with indelible ink.? The patient was brought back to the operating room where anesthesia was induced. The patient was transferred to the operating table and all bony prominences were padded. The operative site was prepped and draped in the usual sterile fashion. A second prep stick was utilized following drape placement. The incision was marked corresponding to the medial aspect of the tibial tubercle and the patella. Ioban was wrapped circumferentially around the knee. Prior to incision, tranexamic acid and cefazolin were administered. Templating images were displayed. A timeout procedure was performed verifying the patient?s identity, medical comorbidities, allergies, relevant medications, anesthesia type and the surgical plan. All present were in agreement. The assistance of a physician educational program assistant was required for positioning, room setup, soft tissue retraction and wound closure. Without this assistance, the procedure would have been significantly more challenging and time consuming.?? The tourniquet was inflated prior to incision. I made an anterior incision over the knee, dissected through the subcutaneous tissues and identified the lateral border of the VMO. Medial and lateral soft tissue flaps were developed. A mid- vastus arthrotomy was performed ensuring that adequate capsular tissue would remain for closure at the conclusion of the procedure. The knee was brought into extension and the medial soft tissues were released off the joint line of the tibia. Tissue overlying the distal anterior femur was released to allow for later assessment for anterior notching but left in place. A portion of the retropatellar fat pad was excised while protecting the patellar tendon. The patella was everted. The patella was not resurfaced. Osteophytes were excised and a lateral facetectomy was performed. The patella was released from its everted position.?? I flexed the knee to 90 degrees and placed retractors to allow access to the notch. An opening reamer was used to gain access to the femoral canal and an intramedullary venancio was introduced into the canal. Diaphyseal fit was obtained in order to plan a distal femoral resection at 5 degrees relative to the anatomic axis. A +1 resection was planned and assessed using an yury wing. I then made the cut using a sagittal saw. This provided additional access to the femoral notch. The ACL and PCL were excised. Retractors were placed on the lateral and medial tibia. I hyperflexed the knee while externally rotating it to sublux the tibia anteriorly. I placed a Janie retractor posteriorly and used this to provide additional anterior subluxation. The remainder of the PCL root was released. An extramedullary guide was positioned for a resection in slight varus. A +2 resection off the medial tibia was planned and the tibial cutting jig was pinned in place. I evaluated the depth, varus-valgus alignment and slope of the planned tibial resection prior to making the cut. I cut the tibia with a sagittal saw while using retractors to protect the MCL, patellar tendon, and posterolateral structures.? The knee was repositioned in extension and the Fuzion soft tissue balancing gauge was introduced. This demonstrated that there was equal tension in the medial and lateral compartments of the knee with the knee in full extension and no additional soft tissue releases were necessary. When 40 pounds of force was applied to the Fuzion device, the extension gap opened to 10 mm. I moved the knee into 90 degrees of flexion, and the Fuzion device was recalibrated by removing a 9 mm umang to allow assessment of the flexion gap. The Fuzion block was placed perpendicular to the resected surface of the tibia and the resected surface of the distal femur. Forty pounds of traction was applied to match the tension of the extension gap. This externally rotated the femur to for degrees. Pins were placed in the 10 mm holes. Appropriate sizing was determined and a 4-in-1 block was placed. This was double checked using the Fuzion device to ensure that it would open to an equal distance as the extension gap when the same amount of force was applied. The Fuzion block was also used to assess flexion gap symmetry. An yury wing was used to ensure there would be no anterior notching. Retractors were placed to protect the soft tissues during resection. Captured cuts were performed with a sagittal saw for the anterior and posterior femur as well as the corresponding chamfers.?A laminar system operation superintendent and retractors were used to expose the posterior knee and the menisci and posterior osteophytes were removed. Trial components were placed and the construct was assessed. Range of motion was assessed by ensuring the knee could achieve full extension and assessing maximum passive knee flexion by elevating the femur and allowing the heel to passively fall towards the buttock. Gap symmetry was assessed by stressing the medial and lateral compartments in both extension and flexion. Laxity was assessed in both extension and flexion and the polyethylene trial was adjusted with shims as necessary. Patellar tracking was assessed with knee flexion. Once satisfied with the construct, I moved forward with implant insertion. Lug holes were drilled in the femur and the tibia was prepped ensuring appropriate sizing and rotation relative to the tibial tubercle.?? The bony ends were irrigated and cement was prepared. Portions of the anterior chamfer cut were utilized as a cement restrictor in the femur. Cement was placed on the entirety of the undersurface of both the tibial and femoral components. Cement was placed onto the dry tibia and pressurized into the cancellous bone. I impacted the tibial component into place. Cement was removed. The tibia was red uced underneath the femur and placed cement onto the dry surface of the resected femur. I placed the femoral component as well as the intended polyethylene trial. Cement was removed from around the femur. I brought the knee into extension and manually pressurized the construct by pushing on the heel while the cement dried. The knee was bathed in a dilute mixture of betadine and peroxide. A mixture of Ropivacaine, Epinephrine and Toradol was infiltrated throughout the soft tissues into structures including the VMO, patellar tendon, quadriceps tendon, MCL and femoral periosteum. The knee was copiously irrigated with pulse lavage. Once cement had been allowed to dry the knee was again trialed. Range of motion was assessed by ensuring the knee could achieve full extension and assessing maximum passive knee flexion by elevating the femur and allowing the heel to passively fall towards the buttock. Gap symmetry was assessed by stressing the medial and lateral compartments in both extension and flexion. Laxity was assessed in both extension and flexion and the polyethylene trial was adjusted with shims as necessary. Patellar tracking was assessed with knee flexion. The tourniquet was let down and the polyethylene trial was removed. I inspected the knee inspected for excess cement and any residual bleeding. Once hemostasis was achieved I inserted the final polyethylene and ensured appropriate engagement of the dovetail locking mechanism.?? The arthrotomy was closed with non-absorbable interrupted suture ensuring that this extended to the top of the arthrotomy. This was backed up with running barbed suture throughout the arthrotomy. The skin was closed with 2-0 and 3-0 sutures. Surgical glue was applied and a soft dressing was placed.?The sponge, instrument and needle counts were reported as being correct at the end of the case. The patient was transferred from the operating table back to a stretcher. The patient emerged from anesthesia without difficulty and was taken to the PACU in a stable condition.? Plan for aftercare: * Weightbearing as tolerated * Aspirin 81 twice per day for DVT prophylaxis * Multimodal pain regimen with no IV opioids ordered * Anticipate discharge home later today. Patient is very hopeful to discharge same day postoperatively but she does have 18 steps into her house so I want to be sure that she is ambulating well before we discharge her home and if she is having any problems we would have her stay overnight * Follow up at [facility] in 2 weeks for wound check Complications: none
[2025-02-09] MEDS: ONDANSETRON 4 MG/2 ML INJ IV (13:21)
--- NOTE | 2025-02-09 15:49 | P.PN_ITS ---
Subjective Subjective Interval history: I came to check on Anastasiia postoperatively. She is resting comfortably in bed. She had some issues with nausea early in her recovery this afternoon but this seems to have resolved this point in time. She reports that her pain is well- controlled. She has a dressing that is clean dry and intact. She has intact plantar flexion and dorsiflexion of her hallux and ankle. 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 We will plan to have her stay overnight tonight and discharge home in the morning tomorrow after getting some work with physical therapy Exam Vital Signs (past 8 hours): - 02/09/25 09:25 02/09/25 13:05 02/09/25 13:10 Temperature 97.2 F L 97.1 F L 97.1 F L Pulse Rate 67 86 86 Respiratory Rate 16 12 20 Blood Pressure 179/81 H 167/71 H 155/69 H Pulse Oximetry 96 93 95 Oxygen Delivery Method Room Air Nasal Cannula Nasal Cannula Oxygen Flow Rate 2 2 02/09/25 13:15 02/09/25 13:20 02/09/25 13:25 Temperature 97.1 F L Pulse Rate 85 81 81 Respiratory Rate 18 10 L 15 Blood Pressure 164/70 H 170/74 H 162/70 H Pulse Oximetry 94 95 94 Oxygen Delivery Method Nasal Cannula Nasal Cannula Nasal Cannula Oxygen Flow Rate 2 2 2 02/09/25 13:30 02/09/25 13:35 02/09/25 13:40 Temperature 97.1 F L 97.1 F L 97.1 F L Pulse Rate 81 79 76 Respiratory Rate 15 19 12 Blood Pressure 162/72 H 160/70 H 157/67 H Pulse Oximetry 95 95 97 Oxygen Delivery Method Nasal Cannula Nasal Cannula Nasal Cannula Oxygen Flow Rate 2 2 2 02/09/25 13:45 02/09/25 13:50 02/09/25 13:55 Temperature 97.1 F L 97.1 F L 97.1 F L Pulse Rate 76 75 75 Respiratory Rate 12 16 16 Blood Pressure 157/70 H 155/69 H 157/69 H Pulse Oximetry 97 95 95 Oxygen Delivery Method Nasal Cannula Room Air Nasal Cannula Oxygen Flow Rate 2 2 02/09/25 14:00 02/09/25 14:05 02/09/25 14:10 Temperature 97.1 F L 97.1 F L 97.1 F L Pulse Rate 75 77 78 Respiratory Rate 16 12 12 Blood Pressure 153/67 H 158/69 H 161/69 H Pulse Oximetry 94 96 96 Oxygen Delivery Method Nasal Cannula Nasal Cannula Nasal Cannula Oxygen Flow Rate 2 2 2 02/09/25 14:15 02/09/25 14:20 02/09/25 14:25 Temperature 97.1 F L 97.1 F L 97.1 F L Pulse Rate 74 74 73 Respiratory Rate 12 12 12 Blood Pressure 161/56 H 153/66 H 158/71 H Pulse Oximetry 96 96 97 Oxygen Delivery Method Nasal Cannula Nasal Cannula Nasal Cannula Oxygen Flow Rate 2 2 2 02/09/25 14:30 02/09/25 15:03 Temperature 97.1 F L 96.7 F L Pulse Rate 71 75 Respiratory Rate 12 14 Blood Pressure 151/59 H 153/64 H Pulse Oximetry 96 91 Oxygen Delivery Method Nasal Cannula Oxygen Flow Rate 2 0 Oxygen Delivery Method Nasal Cannula Oxygen Flow Rate 0 Objective Labs Labs: Laboratory Results - last 24 hr 02/09/25 09:23 POC Whole Bld Glucose 106 H PFSH Medical History (Updated 02/02/25 @ 10:19 by Whitney Nicolas RN) Pre-diabetes History of COVID-19 (2023) Primary osteoarthritis of left knee Lumbar spondylosis Low back pain On prednisone therapy Insomnia Colitis Lower GI bleed (~11/2022) Hyperlipidemia Osteoporosis Hypertension Polymyalgia rheumatica Allergies Headache Fractures Foot pain Measles Chicken pox Anemia Tinnitus Painful menstrual periods Kidney stones (~2019) History of irritable bowel syndrome Hemorrhoid GERD (gastroesophageal reflux disease) Surgical History (Updated 12/09/24 @ 13:25 by Roderick Hart MD) Status post right partial knee replacement Anesthesia History of appendectomy History of tonsillectomy History of tubal ligation (~1969) History of hysterectomy (~1974) History of Achilles tendon repair (~1989) History of cholecystectomy (~1989) Status post excision of Comer's neuroma (~1989) History of nephrolithotomy with removal of calculi (~2020) History of partial knee replacement (~03/28/22) Family History Father Stroke Mother No problems noted. Social History Smoking Status: Never smoker Assessment & Plan Post-op Postoperative Procedures: Procedures Operation Date: 02/09/25 10:45 Actual Procedure Side Surgeon p Total Knee Arthroplasty Left Roderick Hart MD
--- NOTE | 2025-02-09 16:55 | PT.IIE ---
Current Diagnoses Unilateral primary osteoarthritis, left knee (02/09/25) Surgery Performed Operation Date: 02/09/25 10:45 Actual Procedures p Total Knee Arthroplasty(Left) - Roderick Hart MD Surgical History (Last Updated 12/09/24 @ 13:25 by Roderick Hart MD) Anesthesia History of Achilles tendon repair (~1989) History of appendectomy History of cholecystectomy (~1989) History of hysterectomy (~1974) History of nephrolithotomy with removal of calculi (~2020) History of partial knee replacement (~03/28/22) History of tonsillectomy History of tubal ligation (~1969) Status post excision of Comer's neuroma (~1989) Status post right partial knee replacement Medical History (Last Updated 02/02/25 @ 10:19 by Whitney Nicolas RN) Allergies Anemia Chicken pox Colitis Foot pain Fractures GERD (gastroesophageal reflux disease) Headache Hemorrhoid History of COVID-19 (2023) History of irritable bowel syndrome Hyperlipidemia Hypertension Insomnia Kidney stones (~2019) Low back pain Lower GI bleed (~11/2022) Lumbar spondylosis Measles On prednisone therapy Osteoporosis Painful menstrual periods Polymyalgia rheumatica Pre-diabetes Primary osteoarthritis of left knee Tinnitus Physical Therapy Inpatient Evaluation/Re-Eval M1 PT/OT-IP Prior Functional Status Start: 02/09/25 16:54 Freq: NEEDED Status: Active Protocol: Document 02/09/25 16:30 DCW (Rec: 02/09/25 17:05 DCW [id number]) Medical Review Social History Living Arrangements House Number of Stairs To 18 Stairs into house Enter/Railing? Home Equipment Front Wheel Walker M2 PT-IP Current Condition Start: 02/09/25 16:54 Freq: NEEDED Status: Active Protocol: Document 02/09/25 16:30 DCW (Rec: 02/09/25 17:05 DCW [id number]) Physical Therapy Current Condition Current Condition Evaluation Date 02/09/25 Treatment Diagnosis L TKA Onset Date 02/09/25 M3 PT-IP Subjective Start: 02/09/25 16:54 Freq: NEEDED Status: Active Protocol: Document 02/09/25 16:30 DCW (Rec: 02/09/25 17:05 DCW [id number]) Subjective Physical Therapy Visit Type Type Initial Evaluation Visit Start Time 16:30 Visit Stop Time 16:55 Notes Pt in bed with elevated head of bed as therapist enters . PRODUCTION SUPERINTENDENT HYDRO and RN in room as well, pt stating she needs to use commode. Pt hoping to discharge today and spend the night in her home, but has 18 stairs she needs to do to get to her house. Notes no pain in left knee, but some mild soreness. Number of GLASS FORMING ENGINEER Visits 0 Physical Therapy Visit Comments Patient Comments I really want to get home tonight. M4 PT-IP Mobility and Gait Start: 02/09/25 16:54 Freq: NEEDED Status: Active Protocol: Document 02/09/25 16:30 DCW (Rec: 02/09/25 17:05 DCW [id number]) PT-Bed Mobility Assessment Rolling Level of Assist Standby Assistance Supine to Sit Supine to Sit Contact Guard Assistance PT-Transfer Assessment Sit to and From Stand Sit to and from Standby Assistance Stand Equipment Transfer Assistive Bed Rail,Gait Belt,Front Wheeled Walker Device Transfers Transfer Destination Bed,Bedside Commode Transfer Technique Stand Step Pivot Transfer Ability Level of Assist Standby Assistance Comments Mobility Comments Pt SBA with bed mobility and transfers Gait Assessment Gait Gait Assistance Contact Guard Assist Required: Distance (Feet) 60 Assistive Devices Assistive Device Gait Belt,Front Wheeled Walker Gait Deviations General Gait Pattern Antalgic,Decreased Stride Length,Decreased Feet Clearance,Step-to Gait Factors Limiting Gait Function Factors Limiting Decreased Activity Tolerance,Decreased Strength Gait Function M5 PT-IP Objective Assessments Start: 02/09/25 16:54 Freq: NEEDED Status: Active Protocol: Document 02/09/25 16:30 DCW (Rec: 02/09/25 17:05 DCW [id number]) Orientation Orientation/Cognition Level of Alertness Alert Language Function No Deficits Noted Ability Safety Awareness Understands Safety Issues Memory Description No Deficits Noted Strength Comments Strength Comments Able to lift L LE against gravity M6 PT-IP Treatment Start: 02/09/25 16:54 Freq: NEEDED Status: Active Protocol: Document 02/09/25 16:30 DCW (Rec: 02/09/25 17:05 DCW [id number]) Physical Therapy Treatment Exercises Exercises Ankle Pumps,Gluteal Sets,Quad Sets,Heel Slides Education Education Provided Post-Op Packet,Safety M7 PT-IP Assessment and Plan Start: 02/09/25 16:54 Freq: NEEDED Status: Active Protocol: Document 02/09/25 16:30 DCW (Rec: 02/09/25 17:05 DCW [id number]) PT Summary Assessment and Plan Potential Rehabilitation Excellent Potential Status of Condition Stable at Evaluation Summary Impairments Pain,ROM,Strength,Bed Mobility,Transfers,Gait,Activity Tolerance Assessment Summary Pt presenting s/p L TKA on day of surgery, very motivated to go home, did well with bed mobility and transfers. Tried to practice some ambulation, but pt immediately notes left knee pain and fairly significant fatigue, needing to return to room and sit in recliner . Unfortunately due to pt's 18 steps to get back home, pt unlikely to be safe to return home today. Will benefit from further in-patient PT and assessment on stairs tomorrow in hopes to return home safely. Pt lives alone, but notes she has multiple friends with keys planning to come check on her frequently. Provided with post-op handout for exercises. Goals Bed Mobility Goal Independent Transfer Goal Independent Gait Goal Independent,Front Wheel Walker Gait Distance 200' Other Goals Ascend/descend 18 stairs /c left ascending railing Days to Meet Goals 3 Frequency of Treatment Frequency Of Twice a Day Treatment Treatment Plan Physical Therapy Bed Mobility Training,Transfer Training,Gait Training, Treatment Plan Therapeutic Exercise,Post Op Education,Discharge Planning,Neuromuscular Re-ed Weight Bearing Status Weight Bearing Weight Bear as Tolerated Status Recommendations To Nursing Amount of Assist Standby Assistance,1 Person Assist Needed Discharge Recommendations PT Discharge Home Recommendations Transportation Needs Private Vehicle at Discharge - PT assist 1
[2025-02-09] MEDS: IBUPROFEN 600 MG TABLET PO ×2 (18:00→21:46)
[2025-02-09] MEDS: ACETAMINOPHEN 325 MG TABLET 650 MG PO ×2 (18:00→21:46)
[2025-02-09] MEDS: LACTATED RINGERS 1,000 ML 100 ML IV ×2 (18:01→23:24)
--- NOTE | 2025-02-09 19:44 | PC.NURSE ---
Patient arrived from PACU this afternoon VSS, afebrile, weaned to RA.Chadd wrap to L knee c/d/i. Patient initally with dull sensation to BLE, but wears off quickly and she has full sensation to BLE's. She is assisted to use BSC, with RN and PT. She expresses wishing to go home tonight, however after working with PT and ambulating a short distance she reports she is tired and wanting to sit down. Patient is agreeable to staying overnight. Call light in reach, IVF, encouraged IS use, SCD's, frequent monitoring.
[2025-02-09] MEDS: DOCUSATE 100 MG CAPSULE PO (21:41)
[2025-02-09] MEDS: ASPIRIN EC 81 MG TABLET PO (21:41)
[2025-02-10] MEDS: IBUPROFEN 600 MG TABLET PO ×2 (04:31→10:00)
[2025-02-10] MEDS: ACETAMINOPHEN 325 MG TABLET 650 MG PO ×2 (04:32→10:00)
[2025-02-10] MEDS: PANTOPRAZOLE DR 40 MG TABLET PO (06:03)
--- NOTE | 2025-02-10 06:28 | PM.DS.IH.1 ---
History of Present Illness History of Present Illness Chief complaint: Left Total Knee Arthroplasty Narrative: 79 year old female with a past medical history of GERD and polymyalgia rheumatica presented to [facility] on 02/09/25 for planned left total knee arthroplasty by Dr. Hart. ?This elective procedure was indicated by chronic left knee arthritis limiting her normal activities of enjoyment. ?On the date of surgery there were no changes of the medical history, medications or allergies. ?Consent had been obtained and the patient was in agreement to proceed with planned surgery. Discharge Providers Provider Discharge Date: 02/10/25 Primary care physician: CRYSTAL Brannon Consults: 02/09/25 07:52 Consult to Anesthesiology Routine Comment: Consulting Provider: Anesthesiologist Reason for consultation: Regional block for post operative pain control 02/09/25 14:33 Consult to Discharge Planning Routine Comment: Consult to Occupational Therapy Evaluate & Treat Comment: Physician Instructions: Evaluate and treat Consult to Physical Therapy Evaluate & Treat Comment: Physician Instructions: Evaluate and Treat Discharge provider: CHRISTIAN Agudelo Dr Summary Hospital Course Hospital Course: On 02/09/25 the patient was brought to the operating room for planned left total knee arthroplasty by Dr Hart.? There were no known intraoperative complications.? The patient was transferred to the postoperative recovery area and monitored appropriately.? Later the patient was transferred to the acute care unit [facility] for monitoring overnight and physical therapy.? She had nausea after anesthesia and stayed the night to gain better control of the nausea. There were no acute events overnight. On postoperative day 1, the patient's vital signs were stable and she was making urine spontaneously.? The patient denied chest pain, dyspnea, fever, chills nausea and emesis on postoperative day 1.? She tolerated dinner on post operative day 0 without any nausea or emesis. Physical therapy recommended discharge home on evaluation on post operative day 0. Pain was well-controlled on oral analgesics without use of narcotic pain medications and the patient was in agreement with preoperative plan to discharge home on postoperative day 1. Exam Vital Signs (past 8 hours): Oxygen Delivery Method Room Air Oxygen Flow Rate 0 Narrative Exam Narrative: well developed, well nourished, 79 year old female, no acute distress Aquacel dressing is dry and intact to left knee with Webril and Chadd wrap Ankle dorsiflexion, plantar flexion, inversion eversion as well as knee extension are intact. Palpable dorsalis pedis pulse. Sensation intact to light touch about left foot. No pain with calf squeeze, soft and compressible Objective Labs Labs: Laboratory Results - last 24 hr 02/09/25 09:23 POC Whole Bld Glucose 106 H [facility] Medical History (Updated 02/02/25 @ 10:19 by Whitney Nicolas RN) Pre-diabetes History of COVID-19 (2023) Primary osteoarthritis of left knee Lumbar spondylosis Low back pain On prednisone therapy Insomnia Colitis Lower GI bleed (~11/2022) Hyperlipidemia Osteoporosis Hypertension Polymyalgia rheumatica Allergies Headache Fractures Foot pain Measles Chicken pox Anemia Tinnitus Painful menstrual periods Kidney stones (~2019) History of irritable bowel syndrome Hemorrhoid GERD (gastroesophageal reflux disease) Surgical History (Updated 12/09/24 @ 13:25 by Roderick Hart MD) Status post right partial knee replacement Anesthesia History of appendectomy History of tonsillectomy History of tubal ligation (~1969) History of hysterectomy (~1974) History of Achilles tendon repair (~1989) History of cholecystectomy (~1989) Status post excision of Comer's neuroma (~1989) History of nephrolithotomy with removal of calculi (~2020) History of partial knee replacement (~03/28/22) Family History Father Stroke Mother No problems noted. Social History household members: none Smoking Status: Never smoker alcohol intake: never Discharge Assessment & Plan Assessment and Plan Plan of Treatment: 79 year old female with a past medical history of GERD and polymyalgia rheumatica is post operative day 1 from a left total knee arthroplasty by Dr. Hart at [facility] on 02/09/25. The patient is recovering well with appropriate pain control on oral analgesics and is awaiting evaluation by physical therapy with plan for discharge home today.? Incidentally she was treated by Nora VALDES for de Quervain tenosynovitis and received a corticosteroid injection prior to surgery. She notes 1 week of complete pain relief in her entire body after this injection. Plan:? Weightbearing as tolerated to left lower extremity with front wheeled walker? DVT prophylaxis with 81 mg of aspirin twice daily for 6 weeks? Continue multimodal analgesia with Tylenol, meloxicam and oxycodone?as needed Bowel regimen as needed? Physical therapy evaluation and treatment today. Disposition recommendation yesterday was discharge home. Follow up with orthopedics 2 weeks post operatively? All post operative medications ordered at pre operative visit. At patient request, no narcotic pain medications were given. TXA IV to be given prior to discharge Ice to surgical site as needed? Discharge Plan Discharge Plan Provider Discharge Comment: SURGICAL PROCEDURE: Left Total Knee Arthroplasty SURGEON: Dr. Hart at [facility] DATE: 02/09/25 ACTIVITY INSTRUCTIONS o You are weight bearing as tolerated to the left lower extremity with a front wheeled walker at all times. We encourage active movement of the toes and ankle every hour while awake to prevent stiffness. o Limit your steps to no more than 1000 steps per day for the first week after surgery to limit swelling. o Do not drive while taking narcotic medications and recovering from your surgery. o If you had a knee replacement, we want you to follow a quiet knee protocol for the first two weeks after surgery. This means: Do not stand for more than 20 minutes at a time Ambulate less than 1,000 steps per day Bend the knee as far as you can with your own muscles and straighten it all the way out by resting your heel on a flat surface and letting your knee hang down Avoid anyone pushing your knee to bend it or straighten it ? After two weeks we will want you to get more aggressive in your work with physical therapy, but we need to let your body heal first DRESSING CARE o You have a waterproof dressing on top of your incision. This is a waterproof dressing and so you may shower with the dressing so long as the dressing remains clean and dry to the surgical site. Leave the dressing in place until your follow up in the orthopedic clinic. If the dressing becomes saturated or is disrupted call our office for further guidance. o Your dressing is covered with a soft cotton dressing and chadd wrap for compression. You may remove these dressings when you return home but should leave the waterproof dressing in place. POST-OPERATIVE INSTRUCTIONS o If you notice fever, chills, night sweats, redness, excessive drainage or bleeding, a sharp increase in pain that persists after taking pain medication, pain in your calf muscles, chest pain or trouble breathing please unwrap the dressing and investigate. Then call the office with findings for further guidance. If it is after regular clinic hours, please seek care in the emergency department. o In the rare case of any severe chest pain and trouble breathing, seek immediate care, do not delay for a call to the clinic. o Use ice to the affected extremity for 15-30 minutes increments as much as possible. Use your ice machine as discussed in your pre-operative visit. o Keep extremity elevated to the level of the heart to reduce swelling. You can use ice on top of the dressing to reduce pain and swelling of the extremity. o You should consume a low sodium diet after surgery to limit swelling. You can gradually resume your normal diet if you have no nausea or vomiting o Physical therapy should begin about 7-10 days after surgery. Your first evaluation should already be scheduled. Call our office if you cannot schedule your therapy in the expected time frame. o Your follow up is already scheduled for 2 weeks after your surgery at the Orthopedic clinic. o You should have no dental procedures for 3 months following your total joint replacement. o Please refer to Dr. Hart?s educational videos on YouTube for a reference on your post operative care. o Call [facility] at [phone] with any questions or concerns. MEDICATIONS o Please refer to the ?Orthopedic Medication Instructions? sheet provided at your pre-operative visit. Written instructions are provided below as a reminder. ? Take two pills of 500 mg Tylenol (acetaminophen) every 8 hours regardless of pain in a scheduled manner. Do not exceed 3000 mg of Tylenol (from ALL sources, including over the counter combination products) in a 24-hour period due to risk of liver injury. ? Take one pill of oral meloxicam daily. This is NSAID (anti-inflammatory) medication to reduce swelling and pain. ? Take 200 mg of Colace by mouth every 12 hours for constipation. Narcotic medications such as oxycodone and tramadol as well as anesthesia may increase your risk of constipation after surgery. ? Take 4 mg of Zofran by mouth every 6 hours as needed for uncontrolled nausea or vomiting. If you have persistent nausea and vomiting call our office or seek care in the emergency department. ? Take one pill of 81 mg of aspirin two times daily 12 hours apart for 6 weeks for blood clot prevention. Take this medication regardless of pain. ? Take three pills of 650 mg tranexamic acid once daily for 3 days following surgery. This is to reduce bleeding and swelling in your knee. ? Take a proton pump inhibitor such as Pantoprazole or Omeprazole if you have a history of acid reflux or are noticing stomach irritation. NSAIDs and aspirin can both cause stomach irritation and that medication can help avoid stomach issues. o If you stopped taking a ?biologic? medication that you normally take for an issue such as rheumatoid arthritis or psoriasis prior to surgery, do not restart it until we have seen you back in clinic and confirmed that your wound is healed. o Resume all of your normal home medications tomorrow morning unless specified otherwise by your surgeon Discharge orders & Medications Discharge Orders: Discharge (Order); Ordered 02/10/25 Ordered By: Kelsey Saxena Prescriptions: New aspirin 81 mg Tablet,Delayed Release (Dr/Ec) 81 mg PO BID Qty: 84 0RF Continued rosuvastatin 5 mg tablet 5 mg PO .twice weekly Qty: 24 3RF lisinopril 10 mg tablet 10 mg PO DAILY Qty: 90 3RF pantoprazole 40 mg tablet,delayed release (DR/EC) 40 mg PO DAILY zenium 3 tab PO .PRN Rx Instructions: anxiety calcium gummies 500 mg PO .QD Rx Instructions: Elizabeth Brand multivitamin Tablet 1 tab PO DAILY Patient Comments: Elizabeth Adult MTV cholecalciferol (vitamin D3) 125 mcg (5,000 unit) capsule 125 mcg PO DAILY (DME) BreatheRite MDI Spacer Spacer See Rx Instructions .Route Qty: 1 0RF Rx Instructions: As directed loratadine [Allergy Relief (loratadine)] 10 mg tablet 10 mg PO DAILY triamcinolone acetonide 0.1 % cream 1 applic topical DAILY Qty: 30 0RF Rx Instructions: Do not use more than 14 days at a time fluticasone propionate 110 mcg/actuation HFA aerosol inhaler 1 puff inhalation BID PRN (Reason: Coughing) Rx Instructions: Inhale 1 puff twice daily for 2 weeks - Rinse mouth out well after use Discontinued amoxicillin 500 mg tablet 2,000 mg PO ONCE Qty: 4 0RF Rx Instructions: take 4 tablets 30 minutes prior to your dental procedure Follow up/Referrals: Eneida Michaels FNP-BC [Primary Care Provider, Family Practice] Visit Report/Discharge Packet Instructions: DI for Knee Replacement Stand Alone Forms: Surgery Discharge Print Language: Maori Discharge Data Primary Care Provider: Eneida Michaels Attending Provider: Secrist,Roderick Quality VTE Deep Vein Thrombosis/Pulmonary Embolism Present on Admission: No [facility] PROFEE Charge Codes Discharge inpatient/observation: 50011
[2025-02-10 07:45] VITALS: BP 138/51; PULSE 64; RESP 14; TEMP 36.1; O2SAT 94
--- NOTE | 2025-02-10 09:00 | OT.IP.EVAL ---
Current Diagnoses Unilateral primary osteoarthritis, left knee (02/09/25) Surgery Performed Operation Date: 02/09/25 10:45 Actual Procedures p Total Knee Arthroplasty(Left) - Roderick Hart MD Past Medical History (Last Updated 02/02/25 @ 10:19 by Whitney Nicolas RN) Allergies Anemia Chicken pox Colitis Foot pain Fractures GERD (gastroesophageal reflux disease) Headache Hemorrhoid History of COVID-19 (2023) History of irritable bowel syndrome Hyperlipidemia Hypertension Insomnia Kidney stones (~2019) Low back pain Lower GI bleed (~11/2022) Lumbar spondylosis Measles On prednisone therapy Osteoporosis Painful menstrual periods Polymyalgia rheumatica Pre-diabetes Primary osteoarthritis of left knee Tinnitus Surgical History (Last Updated 12/09/24 @ 13:25 by Roderick Hart MD) Anesthesia History of Achilles tendon repair (~1989) History of appendectomy History of cholecystectomy (~1989) History of hysterectomy (~1974) History of nephrolithotomy with removal of calculi (~2020) History of partial knee replacement (~03/28/22) History of tonsillectomy History of tubal ligation (~1969) Status post excision of Comer's neuroma (~1989) Status post right partial knee replacement Occupational Therapy Inpatient Evaluation/Re-Eval M1 PT/OT-IP Prior Functional Status Start: 02/09/25 16:54 Freq: NEEDED Status: Active Protocol: Document 02/10/25 09:26 [facility] (Rec: 02/10/25 09:34 [facility] Desktop) Medical Review Prior Functional Status Communication I Mobility and Gait Used the W for the last week. Activities of Daily I Living and IADL's Social History Household Members none Living Arrangements Apartment/Condo Number of Stairs To 18 steps with left rail to enter. Enter/Railing? Home Environment Standard Height Toilet,Tub/Shower Home Equipment Front Wheel Walker,Straight Cane Additional Social Pt also has trekking poles. History Comment M2 OT-IP Current Condition Start: 02/10/25 09:26 Freq: Status: Active Protocol: Document 02/10/25 09:26 [facility] (Rec: 02/10/25 09:34 [facility] Desktop) Occupational Therapy Current Condition Current Condition Evaluation Date 02/10/25 Treatment Diagnosis S/P L TKA Diagnosis Onset Date 02/09/25 M3 OT- IP Subjective and Pain Start: 02/10/25: Freq: Status: Active Protocol: Document 02/10/25:26 [facility] (Rec: 02/10/25 09:34 [facility] Desktop) OT- Subjective Occupational Therapy Visit Type Type Initial Evaluation Visit Start Time 08:55 Visit Stop Time 09:25 Occupational Therapy Visit Comments Patient Comments Pt agreed to get up to get dressed. Patient/Caregiver TO go home. Goals OT Pain Assessment Pain When Pain Assessed During Mobility Pain Present Pain Present Pain Reported Location Left Knee Intensity 2 Scale Used Numeric (0 - 10) M4 OT- IP ADL's Start: 02/10/25: Freq: Status: Active Protocol: Document 02/10/25 [facility] (Rec: 02/10/25 09:34 [facility] Desktop) OT DLO-Mdrd-Tvdzedm General Evaluation Self-Feeding Ability Independent OT ADL-Grooming Comments OT Grooming Comments Not performed. OT ADL-Oral Care Comments Oral Care Comments Not performed. OT ADL-Dressing General Eval Upper Body Dressing Independent Ability Lower Body Dressing Standby Assistance,Minimal Assistance Ability Comments OT Dressing Comments VC for technique to dress the LLE first and take out last. Able to show and practice use of LB dressing equipment. OT ADL-Toileting Comments OT Toileting Pt states wears pads. Spoke of being mindful not to Comments twist her L knee while doing ADL and hygiene needs. OT ADL-Bathing Comments OT Bathing Comments Pt will benefit from a tub bench and HHsp. M5 OT- IP IADL's Start: 02/10/25 Freq: Status: Active Protocol: Document 02/10/25: [facility] (Rec: 02/10/25 09:34 [facility] Desktop) OT-Instrumental Activities of Daily Living Home Safety Awareness Awareness of Need Good Awareness for Assistance at Home Ability to Problem Able to Problem Solve Solve Emergency Situations Medication Management Medication No Deficits Identified Management Money Management Money Management No Deficits Identified M6 OT- IP Functional Cognition Start: 02/10/25: Freq: Status: Active Protocol: Document 02/10/25: [facility] (Rec: 02/10/25 09:34 [facility] Desktop) Cognitive Factors Limiting Selfcare Function Cognitive Ability Level of Alertness Alert Patient Orientation Name,Age,Birthday,Month,Date,Year,Day of Week,Place, Situation Attention Span Capable of Focused Attention,Capable of Sustained Ability Attention Ability to Follow Able to Follow Multi-Step Commands Commands Memory Description No Deficits Noted Safety Awareness No Deficits Noted Cognitive Comments Cognitive Assessment Pt just needing initial VC to push up from surfaces Comments versus grab the FWW to stand. OT- Vision and Hearing OT- Hearing Assessment OT- Hearing WFL Assessment OT- Vision Assessment Visual Acuity Glasses All The Time Visual Attentiveness WFL Occular Pursuits WFL M7 OT- IP Mobility and Balance Start: 02/10/25 09:26 Freq: Status: Active Protocol: Document 02/10/25 09:26 [facility] (Rec: 02/10/25 09:34 [facility] Desktop) OT- Bed Mobility Assessment Supine to Sit Supine to Sit Assist Standby Assistance OT-Transfer Assessment Sit to and From Stand Sit to and from Standby Assistance Stand Technique Transfer Destination Bed Comments Mobility Comments SBA to get out of bed and able to come to stand with SBA to the FWW. OT- Balance Assessment Sitting Balance and Reactions Static Sitting Normal Balance Ability Dynamic Sitting Normal Balance Ability Standing Balance and Reactions Static Standing Normal Balance Ability Dynamic Standing Good Balance Ability M8 OT- IP Objective Assessments Start: 02/10/25 09:26 Freq: Status: Active Protocol: Document 02/10/25 09:26 [facility] (Rec: 02/10/25 09:34 [facility] Desktop) OT Gross Range of Motion Upper Extremity Range of Motion Assessment Within Functional Limits OT Strength Comments Strength Comments WFL for needs. M9 OT- IP Assessment and Plan Start: 02/10/25 09:26 Freq: Status: Active Protocol: Document 02/10/25 09:26 [facility] (Rec: 02/10/25 09:34 [facility] Desktop) OT Summary Assessment and Plan Potential Rehabilitation Excellent Potential Analytic Complexity Low at Evaluation Summary OT Impairments Pain,Functional Mobility,Bathing,Shower Transfers Progress Towards Progressing Toward Goals Goals Assessment Summary Pt low complexity and main barriers are steps and pain. Pt states to look into getting suggested tub bench, HHSP , and LB dressing equipment. Pt is SBA in the room with the FWW and good safety. Pt to go home with assist when medically stable. Goals Grooming Goal Independent Dressing Goal Independent,Social Science Analyst,Sock Aid Toileting Goal Independent Bathing Goal Independent,Hand Held Shower Sprayer Toilet Transfer Goal Independent Shower Transfer Goal Independent Days to Meet Goals 2 Treatment Plan OT Treatment Plan ADL Training,Functional Mobility,Patient/Family Education,Discharge Planning Discharge Recommendations OT Discharge Home with Assistance,Outpatient PT Recommendations Home Equipment Needs tub bench, HHSP, LB dressing equipment Transportation Needs Private Vehicle at Discharge
[2025-02-10] MEDS: MULTIVITAMIN 1 TABLET 1 TAB PO (09:53)
[2025-02-10] MEDS: CALCIUM CARBONATE 500 MG TAB PO (09:55)
[2025-02-10] MEDS: DOCUSATE 100 MG CAPSULE PO (09:55)
[2025-02-10] MEDS: ASPIRIN EC 81 MG TABLET PO (09:55)
[2025-02-10] MEDS: CHOLECALCIFEROL (VITAMIN D3) 5,000 UNIT TABLET 5000 UNIT PO (10:00)
--- NOTE | 2025-02-10 10:00 | PT.IPTN ---
Current Diagnoses Unilateral primary osteoarthritis, left knee (02/09/25) Surgery Performed Operation Date: 02/09/25 10:45 Actual Procedures p Total Knee Arthroplasty(Left) - Roderick Hart MD Physical Therapy Treatment Note M2 PT-IP Current Condition Start: 02/09/25 16:54 Freq: NEEDED Status: Discharge Protocol: Document 02/09/25 16:30 DCW (Rec: 02/09/25 17:05 DCW [id number]) Physical Therapy Current Condition Current Condition Evaluation Date 02/09/25 Treatment Diagnosis L TKA Onset Date 02/09/25 M3 PT-IP Subjective Start: 02/09/25 16:54 Freq: NEEDED Status: Discharge Protocol: Document 02/10/25 10:00 AB (Rec: 02/10/25 13:14 AB [id number]) Subjective Physical Therapy Visit Type Type Treatment Note Visit Start Time 10:00 Visit Stop Time 10:45 Number of SR. OPERATIONS MANAGER Visits 0 Physical Therapy Visit Comments Patient Comments agreeable to do PT Therapy Pain Assessment Pain When Pain Assessed At Rest Location Left Knee Intensity 3 Scale Used Numeric (0 - 10) Pain Management Apply Cold,Distraction,Modification of Treatment,Re- Techniques positioning,Timing of Activity with Medications M4 PT-IP Mobility and Gait Start: 02/09/25 16:54 Freq: NEEDED Status: Discharge Protocol: Document 02/10/25 10:00 AB (Rec: 02/10/25 13:14 AB [id number]) PT-Bed Mobility Assessment Supine to Sit Supine to Sit Standby Assistance Sit to Supine Sit to Supine Standby Assistance PT-Transfer Assessment Sit to and From Stand Sit to and from Standby Assistance,1 Person Assistance,Use of Upper Stand Extremities Equipment Transfer Assistive Front Wheeled Walker Device Orthotic/Prosthetic No Devices or Brace: Transfers Transfer Destination Chair Transfer Technique ambulated Transfer Ability Level of Assist Standby Assistance,1 Person Assistance,Use of Upper Extremities Comments Mobility Comments pt sitting on EOB and agreed to do PT. completed sit<> supine SBA. sit to stand from EOB SBA and cues for techniques. pt ambulated in room using FWW SBA ~ 15 ft and cues for safety. pt agreed to do stairs. sit to stand from chair SBA and ambulated towards the stairs using FWW ~ 125ft SBA. completed up/down steps holding on to L rail with B hands SBA. completed 3 sets. pt ambulated back to the room using fWW SBA. positioned pt on the chair. call light and table placed next to pt. ice packs provided. Gait Assessment Gait Gait Assistance Standby Assistance Required: Distance (Feet) 125 Able to Maintain Yes Weight Bearing Status During Gait Assistive Devices Assistive Device Gait Belt,Front Wheeled Walker Orthotic/Prosthetic No Devices or Brace: Gait Deviations General Gait Pattern Antalgic,Decreased Stride Length,Decreased Feet Clearance,Step-to Gait Factors Limiting Gait Function Factors Limiting Decreased Activity Tolerance,Decreased Strength, Gait Function Difficulty Following Directions,Limited Range of Motion ,Pain,Poor Balance,Poor Safety Awareness Stair Climbing Assessment Evaluation Level of Assist On Standby Assistance,1 Person Assistance Stairs Devices Stair Climbing Left Railing Assistive Devices Technique/Endurance Stair Climbing Ascend and Descend Direction Stair Climbing Step to Step Technique Number of Steps 3 Climbed Stair Climbing Set # 3 Repetitions (reps) M5 PT-IP Objective Assessments Start: 02/09/25 16:54 Freq: NEEDED Status: Discharge Protocol: Document 02/09/25 16:30 DCW (Rec: 02/09/25 17:05 DCW [id number]) Orientation Orientation/Cognition Level of Alertness Alert Language Function No Deficits Noted Ability Safety Awareness Understands Safety Issues Memory Description No Deficits Noted Strength Comments Strength Comments Able to lift L LE against gravity M6 PT-IP Treatment Start: 02/09/25 16:54 Freq: NEEDED Status: Discharge Protocol: Document 02/10/25 10:00 AB (Rec: 02/10/25 13:14 AB [id number]) Physical Therapy Treatment Education Education Provided Safety M7 PT-IP Assessment and Plan Start: 02/09/25 16:54 Freq: NEEDED Status: Discharge Protocol: Document 02/10/25 10:00 AB (Rec: 02/10/25 13:14 AB [id number]) PT Summary Assessment and Plan Potential Rehabilitation Fair Potential Summary Impairments Pain,ROM,Strength,Balance,Coordination,Sensation,Tone, Cognition,Bed Mobility,Transfers,Gait,Activity Tolerance Progress Towards Slow Progress due to Pain,Slow Progress due to Activity Goals Tolerance Assessment Summary pt requiring SBA with mobilities using FWW. pt lives alone but can call for assistance if needed. pt is set up for outpt PT. Goals Bed Mobility Goal Independent Transfer Goal Independent Gait Goal Independent,Front Wheel Walker Gait Distance 200' Other Goals Ascend/descend 18 stairs /c left ascending railing Days to Meet Goals 3 Frequency of Treatment Frequency Of Twice a Day Treatment Treatment Plan Physical Therapy Bed Mobility Training,Transfer Training,Gait Training, Treatment Plan Therapeutic Exercise,Post Op Education,Discharge Planning,Neuromuscular Re-ed Weight Bearing Status Weight Bearing Weight Bear as Tolerated Status Allowed Weight LLE WBAT Bearing Amount ( enter % or #) (%) Recommendations To Nursing Amount of Assist Standby Assistance,1 Person Assist Needed Discharge Recommendations PT Discharge Home,Outpatient PT Recommendations Transportation Needs Private Vehicle at Discharge - PT assist 1
--- NOTE | 2025-02-10 11:24 | PC.NURSE ---
Pt is dressed and ready for discharge home with friend. Pt IV has been removed. Went over d/c instructions with Pt-discussed d/c meds, time of last dose, reviewed stroke education, showering, care of dressing, knee precautions, icing, drinking plenty of fluids to prevent constipation or dehydration and follow up. Pt denied further questions and was taken out via w/c by CONFERENCE PLANNING MANAGER to POV with friend and all belongings.
--- NOTE | 2025-02-10 11:28 | CM.DANOTE ---
DCP Assessment Note: Pt is a 79yo female, resident of [place], is s/p L TKA. Pt lives in an apartment alone. Pt's Primary Care Provider is BONIFACIO Fisher and insurance is [employer]. Reviewed chart and discussed with multidisciplinary team pt's medical status and initial discharge needs. Pt cleared to discharge home. Per PT/OT, recommending home when pt can clear 18 steps into apartment. Plan: Discharge orders in, anticipating dc home with friend. CM team will follow closely for coordination of discharge plans. LILI Pemberton Discharge Planning/Care Management CM Discharge Assessment Start: 02/09/25 14:04 Freq: Status: Discharge Protocol: Document 02/10/25 11:25 MW (Rec: 02/10/25 11:27 MW [id number]) Discharge Planning Assessment Assigned Discharge SINDY Dhillon [employer] Provider BONIFACIO Brannon Insurance [facility] DPOA/Assigned Pramod Mann Designee Name Contact Information [phone] Advance Directives? Yes Advance Directives No on File History Provided By Patient Prior Living Apartment/Condo Arrangements Comment [place] Household Members none Type of Drives own vehicle transporation used prior to admit Independent with ADL Yes 's Is patient alert and Yes oriented? DME Already Rented / FWW / Walker,Cane Owned Discharge Plan Home Transportation Friend, Winnie Degroot # [phone] Arrangement Referrals Initiated None needed Review Status In Process Please Provide Date 02/10/25 Initial DC Assessment Was Performed Next Review Type Continued Stay Review
== END 2025-02-10 11:26 | disposition home or self-care (01) ==
LOC: OR 08:19 → AC 14:02
PROVIDERS: PCP Nurse Practitioner Family; Referring Provider Orthopaedic Surgery Adult Reconstructive Orthopaedic Surgery; Visit Provider Orthopaedic Surgery Adult Reconstructive Orthopaedic Surgery
PROC: 0SRD0JZ Replacement of Left Knee Joint with Synthetic Substitute, Open Approach (ICD-10-PCS; CPT 27447; principal; 2025-02-09 10:45)
DX: M17.12 Unilateral primary osteoarthritis, left knee (principal); Z79.52 Long term (current) use of systemic steroids; K21.9 Gastro-esophageal reflux disease without esophagitis; M35.3 Polymyalgia rheumatica; M81.0 Age-related osteoporosis without current pathological fracture; M25.762 Osteophyte, left knee
CPT/HCPCS: 27447; 73560; 82962; 97116; 97161; 97165; 97530; 97535; C1776; C1713; J0689; J1100; J1885; J2405; J2704; J7120